=== PATIENT | female | born 1955 | race Caucasian/White ===

== ENCOUNTER 2018-09-17 09:03 | Emergency (ER) | payer BC ==
[2018-09-17] MEDS ORDERED: Promethazine 25 MG/ML SDV IM ONE (09:58)
--- NOTE | 2018-09-17 09:58 | EDM.PDOC ---
<Diogo Stringer - Last Filed: 09/17/18 11:09> ED HPI GENERAL MEDICAL PROBLEM - General Chief Complaint: Neck Problem Stated Complaint: NECK PAIN Time Seen by Provider: 09/17/18 09:45 Source of Information: Reports: Patient History Limitations: Reports: No Limitations - History of Present Illness INITIAL COMMENTS - FREE TEXT/NARRATIVE: 63 year old female presents with neck pain that began yesterday morning. The pain is 9/10 and described as being "sharp" which begins in the base of her neck up to the back of her head and also extends down to both of her shoulders on each side. The left seems to be more symptomatic than the right. She admits to being very limited range of motion of her neck due to pain. She states that pain is aggravated with movement. She has a history of C5-C6 fusion in 1998 and C6-C7 fusion in 2012. She has had 2 laminectomies in 2010 and 2011 of the lumbar spine. She denies any traumatic injury, radiation of pain beyond the shoulders, paresthesias, numbness, or weakness of the upper or lower extremities. Onset: Sudden Onset Date: 09/16/18 Duration: Constant Location: Reports: Neck, Other (nuchal ridge up to base of skull, cervical neck , and shoulders bilaterally) Quality: Reports: Sharp Severity: Severe Improves with: Reports: Other (sitting still). Denies: Movement (No improvment with meloxicam) Worsens with: Reports: Movement Context: Reports: Trauma. Denies: Activity, Exercise, Lifting, Sick Contact Associated Symptoms: Reports: No Other Symptoms. Denies: Confusion, Chest Pain , Fever/Chills, Headaches, Nausea/Vomiting, Shortness of Breath, Syncope, Weakness - Related Data Allergies Allergy/AdvReac Type Severity Reaction Status Date / Time codeine Allergy Hives Verified 09/17/18 09:12 Home Meds: Home Meds Cholecalciferol (Vitamin D3) [Vitamin D] 01/20/16 [History] DULoxetine [Cymbalta] 01/20/16 [History] Hydrocodone/Acetaminophen [Hydrocodon-Acetaminophen 5-325] 1 - 2 each PO Q6HR PRN #20 tablet 01/20/16 [Rx] Omeprazole 01/20/16 [History] busPIRone HCl [busPIRone] 01/20/16 [History] HYDROmorphone [Dilaudid] 2 mg PO Q6H #20 tab 09/17/18 [Rx] Meloxicam 15 mg PO DAILY #12 tablet 09/17/18 [Rx] predniSONE [Deltasone] 20 mg PO ASDIRECTED #18 tablet 09/17/18 [Rx] Past Medical History - Past Surgical History Other Musculoskeletal Surgeries/Procedures:: Cervical spine fusion C5-C6 1998, Cervical SPine fusion C6-C7 2012. Laminectomy 2010 and 2012 of lumbar spine ED ROS GENERAL - Review of Systems Review Of Systems: See Below Constitutional: Reports: No Symptoms, Night Sweats. Denies: Fever, Chills, Weakness, Fatigue, Weight Loss HEENT: Reports: No Symptoms. Denies: Ear Pain, Sinus Problem, Throat Pain, Throat Swelling, Vision Change Respiratory: Reports: No Symptoms. Denies: Shortness of Breath, Wheezing, Pleuritic Chest Pain, Cough, Sputum, Hemoptysis Cardiovascular: Reports: No Symptoms. Denies: Chest Pain, Dyspnea on Exertion, Edema, Lightheadedness, Orthopnea, Palpitations, Syncope Endocrine: Reports: No Symptoms GI/Abdominal: Reports: No Symptoms. Denies: Abdominal Pain, Diarrhea, Difficulty Swallowing, Nausea, Stool Incontinence, Vomiting : Reports: No Symptoms. Denies: Incontinence, Urinary Retention Musculoskeletal: Reports: Neck Pain (see hpi), Back Pain (Chronic lumbar spine) Skin: Reports: No Symptoms. Denies: Pallor, Dryness Neurological: Reports: No Symptoms. Denies: Headache, Numbness, Paresthesia, Syncope, Tingling, Trouble Speaking, Difficulty Walking, Weakness, Change in Speech, Gait Disturbance Psychiatric: Reports: No Symptoms Hematologic/Lymphatic: Reports: No Symptoms Immunologic: Reports: No Symptoms ED EXAM, UPPER BACK/NECK PAIN - Physical Exam Exam Limited By: Physical Impairment (Pt refuse to move neck due to pain.) General Appearance: Alert, WD/WN, No Apparent Distress Eye Exam: Bilateral Eye: EOMI, PERRL Ears Exam: Normal External Exam, Normal Canal, Hearing Grossly Normal, Normal TMs Nose Exam: Normal Inspection, Normal Mucousa, No Blood Throat/Mouth Exam: Normal Inspection, Normal Lips, Normal Teeth, Normal Gums, Normal Oropharynx, Normal Voice, No Airway Compromise Head Exam: Atraumatic, Normocephalic Neck Exam: Limited Range of Motion (due to pain), Painful Range of Motion (No passive or active range of motion due to pain), Stiff Neck, Tenderness (mild of the cervical spine), Other (TMJ full aROM.). No: Tender Lateral Cardiovascular/Respiratory: Regular Rate, Rhythm, No M/R/G, Normal Peripheral Pulses, No JVD, Normal Breath Sounds, No Respiratory Distress GI/Abdominal: Normal Bowel Sounds, Soft, Non-Tender, No Organomegaly, No Distention, No Abnormal Bruit, No Mass (Female) Exam: Deferred Rectal (Female) Exam: Deferred Back Exam: Decreased Range of Motion (limited due to pain of the lumber spine), Vertebral Tenderness. 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 Babinski negative bilaterally.). No: Aphasia, Facial Droop, Motor Weakness DTR: 3+: Bicep (R), Patella (R), Patella (L), Achilles (R), Achilles (L), 4+: Bicep (L) Psychiatric: Normal Affect, Normal Mood Skin Exam: Normal Color, Warm/Dry Lymphatic: No Adenopathy Course - Vital Signs Last Recorded V/S: Last Vital Signs Temp 36.5 C 09/17/18 09:10 Pulse 130 H 09/17/18 09:10 Resp 16 09/17/18 09:10 BP 170/119 H 09/17/18 09:10 Pulse Ox 94 L 09/17/18 09:10 - Orders/Labs/Meds Meds: Medications Discontinued Medications Generic Name Dose Route Start Last Admin Trade Name Freq PRN Reason Stop Dose Admin Hydromorphone HCl 2 mg 09/17/18 11:15 Dilaudid PO 09/17/18 11:16 ONETIME ONE Morphine Sulfate 10 mg 09/17/18 09:56 09/17/18 10:17 Morphine IM 09/17/18 09:57 10 mg ONETIME ONE Administration Morphine Sulfate Confirm 09/17/18 10:04 09/17/18 10:15 Morphine Administered 09/17/18 10:05 Not Given Dose 10 mg .ROUTE .STK-MED ONE Morphine Sulfate 10 mg 09/17/18 10:13 09/17/18 10:17 Morphine Sulfate IV 09/17/18 10:14 Not Given STAT STA Prednisone 30 mg 09/17/18 11:15 Prednisone PO 09/17/18 11:16 ONETIME ONE Promethazine HCl 12.5 mg 09/17/18 09:58 09/17/18 10:12 Phenergan IM 09/17/18 09:59 12.5 mg ONETIME ONE Administration Departure - Departure Disposition: Home, Self-Care 01 Clinical Impression: Degenerative arthritis of cervical spine Qualifiers: Spinal osteoarthritis complication: with radiculopathy Qualified Code(s): M47.22 - Other spondylosis with radiculopathy, cervical region - Discharge Information Prescriptions: HYDROmorphone [Dilaudid] 2 mg PO Q6H #20 tab Meloxicam 15 mg PO DAILY #12 tablet predniSONE [Deltasone] 20 mg PO ASDIRECTED #18 tablet Instructions: Arthritis, [id number] Referrals: Marlena Dawn MD [Primary Care Provider] - Forms: ED Department Discharge Additional Instructions: Evaluation the emergency room today in regards to acute flareup of severe neck pain. You're noted to have severe degenerative arthritis and degenerative disc disease throughout the cervical spine with 2 previous spinal fusions carried out the C5-C6 and C6-C7 levels. There is a good deal of arthritis at the C3 3- C4 level that is causing some nerve root irritation and entrapment particularly on the left side on CT scan. Suffered minor trauma to your head when you fell 2 days ago which may have set off a flareup of pain in the cervical spine. You're treated in the ED with pain management morphine 10 mg intramuscularly with Phenergan 12.5 mg to relieve pain. Suggest treatment at home to be Dilaudid 2 mg tablets to be used 1 every 4-6 hours as needed for pain relief. Suggest use of meloxicam 15 mg once daily to relieve pain and inflammation. This will take a couple of days to start to work well. Deltasone 20 mg twice daily with breakfast and supper for 6 days and then once in the morning only for another 6 days again to relieve inflammation which should reduce her pain. Follow-up with your personal care physician in 5-6 days time for review. Suggest using MiraLAX powder 17 g once daily well on the pain medication to prevent constipation. Continue with massage therapist as planned. 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 She is not on any medications for pain at this time) Neck Pain Score (Numeric/FACES): 9 Past Medical History - Past Health History Medical/Surgical History: Denies Medical/Surgical History Cardiovascular History: Reports: Other (See Below) Other Cardiovascular History: thoracic outlet surgery Musculoskeletal History: Reports: Osteoarthritis (Severe degenerative arthritis of the lumbar spine with previous fusion and advanced degenerative arthritis and degenerative disc disease throughout the cervical spine with two-level fusions.), Osteoporosis - Past Surgical History HEENT Surgical History: Reports: Other (See Below) Other HEENT Surgeries/Procedures: TMJ surgery GI Surgical History: Reports: Cholecystectomy Neurological Surgical History: Reports: Other (See Below) Other Neurological Surgeries/Procedures: neck fusion, back fusion Social & Family History - Tobacco Use Smoking Status *Q: Current Some Day Smoker Years of Tobacco use: 2 Packs/Tins Daily: 0.2 - Caffeine Use Caffeine Use: Reports: Coffee - Recreational Drug Use Recreational Drug Use: No - Living Situation & Occupation Living situation: Reports: Occupation: Disabled ED EXAM, UPPER BACK/NECK PAIN - Physical Exam Exam: See Below Course - Orders/Labs/Meds Meds: Medications Discontinued Medications Generic Name Dose Route Start Last Admin Trade Name Freq PRN Reason Stop Dose Admin Hydromorphone HCl 2 mg 09/17/18 11:15 Dilaudid PO 09/17/18 11:16 ONETIME ONE Morphine Sulfate 10 mg 09/17/18 09:56 09/17/18 10:17 Morphine IM 09/17/18 09:57 10 mg ONETIME ONE Administration Morphine Sulfate Confirm 09/17/18 10:04 09/17/18 10:15 Morphine Administered 09/17/18 10:05 Not Given Dose 10 mg .ROUTE .STK-MED ONE Morphine Sulfate 10 mg 09/17/18 10:13 09/17/18 10:17 Morphine Sulfate IV 09/17/18 10:14 Not Given STAT STA Prednisone 30 mg 09/17/18 11:15 Prednisone PO 09/17/18 11:16 ONETIME ONE Promethazine HCl 12.5 mg 09/17/18 09:58 09/17/18 10:12 Phenergan IM 09/17/18 09:59 12.5 mg ONETIME ONE Administration - Radiology Interpretation Free Text/Narrative:: 63-year-old female presents to the ED with an acute exacerbation of chronic cervical neck pain. Patient is known to suffer from chronic degenerative arthritis and degenerative disc disease of her cervical spine. She's had previous C5-C6 level fusion in 1998 and in had C6-C7 spinal fusion carried out in 2012. She had a slight fall at home 2 days ago where her head hit the wall after getting up from bed. It seems that since that time she has experienced a flareup of his pain in her neck with some radicular pain across the distribution of the superior left shoulder across the trapezius muscle in in towards the deltoid muscle. Pain does not radiate all the way down the arm. At present she is here primarily for pain management. Plan CT cervical spine will be carried out. She'll be given 10 mg of morphine IM with Phenergan 12.5 mg IM for pain and muscle spasm relief. Patient seen and examined with PA student Jewel Stringer. - Re-Assessments/Exams Free Text/Narrative Re-Assessment/Exam: 09/17/18 11:;00: CT cervical spine has been completed. It reveals anterior plate and screws between C5 and C6 obliteration of this disc space is seen with partial fusion fusion is noted at the C6-C7 level as well. Mild spondylosis listhesis is noted at C3-C4 compatible with degenerative apophyseal change. Posterior spurring is also noted at the C3-C4 level. Other degenerative apophyseal changes seen throughout the cervical spine. No fractures are identified. There is mild left-sided neural foraminal stenosis at C4-C5 and moderate bilateral neural foraminal stenosis noted at C3-C4. Mild bony O sent start stroke no stenosis is also noted at the C5-C6 level. Patient advised of the findings. She is quite drowsy from the effect of the morphine infected and had to wake her. She still complaining bitterly of diffuse cervical neck pain. Going to prescribe prednisone 30 mg by mouth now with a plan to place her on 20 mg twice a day for 6 days with breakfast and supper and then once in the morning only for another 6 days to relieve pain and inflammation. She is currently not on an anti-inflammatory and I will place her on meloxicam 15 mg once daily for the next 12 days to relieve pain and inflammation. Pain management will be with Dilaudid 2 mg tablets and she is allergic to codeine and found Percocet on helpful in the past. She will take 2 mg every 4-6 hours necessary for pain relief. 20 tablets provided. She will continue with massage therapy as she is finding this somewhat beneficial in relieving her pain as well. Sounds like she is likely headed for chronic pain management. She is to follow-up with her personal care physician in the next 5 days. Suggest referral to chronic pain management personnel. Departure - Departure Time of Disposition: 11:16 Condition: Fair - Discharge Information *PRESCRIPTION DRUG MONITORING PROGRAM REVIEWED*: No *COPY OF PRESCRIPTION DRUG MONITORING REPORT IN PATIENT AGATA: No
[2018-09-17] MEDS ORDERED: Morphine 10 MG/ML SDV ONE (10:04)
[2018-09-17] MEDS: Morphine 10 MG/ML Syringe IM ONE ×2 (10:12→10:17)
--- NOTE | 2018-09-17 10:48 | CT ---
CT cervical spine Technique: Multiple axial sections were obtained from above C1 inferiorly to the bottom of T2. Reconstructed sagittal and coronal images were obtained. Findings: Anterior plate and screws are noted between C5 and C6. Obliteration of this disc space is seen with partial fusion. Fusion is noted at the C6-C7 level. Mild spondylolisthesis is noted at C3-C4 compatible with degenerative apophyseal change. Posterior spurring is also noted at C3-C4. Other degenerative apophyseal change is seen throughout the cervical spine. No fracture is identified. Mild left-sided neural foraminal stenosis is noted at C4-C5. Moderate bilateral neural foraminal stenosis noted at C3-C4. Mild bony central canal stenosis is noted at C5-C6. Impression: 1. Degenerative change as described above. 2. Nothing acute is appreciated on CT study of the cervical spine. Diagnostic code #2
[2018-09-17] MEDS ORDERED: HYDROmorphone 2 MG Tab PO ONE (11:15)
[2018-09-17] MEDS ORDERED: predniSONE 20 MG Tab PO ONE (11:15)
[2018-09-17 12:37] VITALS: BP 165/112
== END 2018-09-17 12:35 | disposition home or self-care (01) ==
LOC: JD.ED 09:03
DX: M47.22 Other spondylosis with radiculopathy, cervical region (principal); F17.210 Nicotine dependence, cigarettes, uncomplicated; Z88.5 Allergy status to narcotic agent
CPT/HCPCS: 72125; 96372; 99283; A9270; J2270; J2550; 99284

== ENCOUNTER 2019-12-11 13:12 | Emergency (ER) | payer BC ==
[2019-12-11] MEDS ORDERED: fentaNYL 100 MCG/2 ML SDV ONE (13:34)
[2019-12-11] MEDS ORDERED: Midazolam 1 MG/ML 2 ML SDV ONE (13:35)
[2019-12-11] MEDS ORDERED: fentaNYL 100 MCG/2 ML SDV IVPUSH ONE ×3 (13:37→15:17)
--- NOTE | 2019-12-11 14:12 | CR ---
Left shoulder: 3 views left shoulder obtained. Displaced and angulated fracture is noted within the proximal humerus. Alignment at the glenohumeral joint is maintained. No additional abnormality is seen. Impression: 1. Displaced and angulated proximal left humeral fracture. Diagnostic code #3 This report was dictated in MDT
[2019-12-11 15:36] VITALS: BP 111/93
[2019-12-11] MEDS ORDERED: Acetaminophen/HYDROcodone 325-5 MG Tab PO ONE (16:12)
[2019-12-11] MEDS ORDERED: HYDROmorphone 2 MG Tab PO ONE (16:14)
--- NOTE | 2019-12-11 17:18 | EDM.PDOC ---
ED HPI GENERAL MEDICAL PROBLEM - General Chief Complaint: Trauma Stated Complaint: LT SHOULDER INJURY Time Seen by Provider: 12/11/19 13:15 - History of Present Illness INITIAL COMMENTS - FREE TEXT/NARRATIVE: 64-year-old female presents the emergency room after falling off a barstool in her kitchen. This occurred shortly before arrival. The patient has significant discomfort with this. Patient denies any other injuries associated with this unfortunate event. The patient had brief mild tingling in her fingers but this did resolve by the time she got to the emergency room. Patient denies any cool sensation or abnormal sensation in her digits at this time. Patient denies hitting her head. Left Shoulder Pain Score (Numeric/FACES): 10 - Related Data Allergies Allergy/AdvReac Type Severity Reaction Status Date / Time codeine Allergy Hives Verified 09/17/18 09:12 Home Meds: Home Meds Hydrocodone/Acetaminophen [Hydrocodone-Acetamin 5-325 mg] 1 - 2 each PO Q6HR PRN #20 tablet 01/20/16 [Rx] Omeprazole 20 mg PO DAILY 01/20/16 [History] busPIRone HCl [busPIRone] 30 mg PO DAILY 01/20/16 [History] HYDROmorphone [Dilaudid] 1 - 2 mg PO Q6H PRN #20 tab 12/11/19 [Rx] Past Medical History - Past Health History Medical/Surgical History: Denies Medical/Surgical History Cardiovascular History: Reports: Other (See Below) Other Cardiovascular History: thoracic outlet surgery Musculoskeletal History: Reports: Osteoarthritis, Osteoporosis - Past Surgical History HEENT Surgical History: Reports: Other (See Below) Other HEENT Surgeries/Procedures: TMJ surgery GI Surgical History: Reports: Cholecystectomy Neurological Surgical History: Reports: Other (See Below) Other Neurological Surgeries/Procedures: neck fusion, back fusion Social & Family History - Tobacco Use Smoking Status *Q: Never Smoker Second Hand Smoke Exposure: No - Caffeine Use Caffeine Use: Reports: None - Recreational Drug Use Recreational Drug Use: No - Living Situation & Occupation Living situation: Reports: Occupation: Disabled Review of Systems - Review of Systems Review Of Systems: See Below Constitutional: Reports: No Symptoms Respiratory: Reports: No Symptoms Cardiovascular: Reports: No Symptoms GI/Abdominal: Reports: No Symptoms Genitourinary: Reports: No Symptoms Musculoskeletal: Reports: No Symptoms Skin: Reports: No Symptoms Neurological: Reports: No Symptoms Psychiatric: Reports: No Symptoms ED EXAM, GENERAL - Physical Exam Exam: See Below Exam Limited By: No Limitations General Appearance: Alert, Moderate Distress (From the pain associated with this injury) Head: Atraumatic, Normocephalic, Other (With palpation of the scalp no evidence of trauma) Neck: Normal Inspection, Supple, Non-Tender. No: Lymphadenopathy (L), Lymphadenopathy (R), Tender Lateral, Tender Midline Respiratory/Chest: No Respiratory Distress, Lungs Clear, Normal Breath Sounds Cardiovascular: Normal Peripheral Pulses, Regular Rate, Rhythm, No Edema GI/Abdominal: Normal Bowel Sounds, Soft, Non-Tender Back Exam: Normal Inspection. No: CVA Tenderness (L), CVA Tenderness (R), Vertebral Tenderness Extremities: Other (Examination of her left shoulder is concerning she has a bulge on the anterior surface almost like an anterior dislocation however she does not have a sulcus sign. Neurovascular status of the hand is entirely within normal limits the patient can move the elbow however muscle movement extending proximally up the humerus causes worsening pain the patient has some ecchymosis noted over the anterior shoulder next to the bulge that is anterior) Course - Vital Signs Last Recorded V/S: Last Vital Signs Temp 36.2 C 12/11/19 13:40 Pulse 78 12/11/19 17:15 Resp 16 12/11/19 17:15 BP 111/93 H 12/11/19 15:35 Pulse Ox 97 12/11/19 17:15 - Orders/Labs/Meds Orders: Active Orders 24 hr Category Date Time Status DME for Discharge [COMM] Stat Oth 12/11/19 15:10 Ordered Meds: Medications Discontinued Medications Generic Name Dose Route Start Last Admin Trade Name Emile PRN Reason Stop Dose Admin Hydrocodone Bitart/Acetaminophen 2 tab 12/11/19 16:12 12/11/19 17:28 [place] 325-5 Mg PO 12/11/19 16:13 Not Given ONETIME ONE Fentanyl 50 mcg 12/11/19 13:37 12/11/19 13:49 Sublimaze IVPUSH 12/11/19 13:38 50 mcg ONETIME ONE Administration Fentanyl Confirm 12/11/19 13:34 12/11/19 13:49 Sublimaze Administered 12/11/19 13:35 Not Given Dose 100 mcg .ROUTE .STK-MED ONE Fentanyl 50 mcg 12/11/19 14:47 12/11/19 14:51 Sublimaze IVPUSH 12/11/19 14:48 50 mcg ONETIME ONE Administration Fentanyl 50 mcg 12/11/19 15:17 12/11/19 15:26 Sublimaze IVPUSH 12/11/19 15:18 50 mcg ONETIME ONE Administration Hydromorphone HCl 2 mg 12/11/19 16:14 12/11/19 16:54 Dilaudid PO 12/11/19 16:15 2 mg Q4H ONE Administration Midazolam HCl Confirm 12/11/19 13:35 12/11/19 14:05 Versed 1 Mg/Ml Administered 12/11/19 13:36 Not Given Dose 2 mg .ROUTE .STK-MED ONE - Re-Assessments/Exams Free Text/Narrative Re-Assessment/Exam: 12/11/19 19:49 X-ray of the shoulder shows angulated and displaced fracture of the proximal humerus. I discussed this with Dr. Bhatt who would like the patient placed in a sling gravity might help get better alignment of this. So the sling was placed loosely. Over time the patient felt much better with this. The patient has had problems with codeine hydrocodone and Percocet in the past she does better on oral Dilaudid. Departure - Departure Time of Disposition: 17:14 Disposition: Home, Self-Care 01 Clinical Impression: Closed fracture of left proximal humerus - Discharge Information Prescriptions: HYDROmorphone [Dilaudid] 1 - 2 mg PO Q6H PRN #20 tab PRN Reason: Pain Instructions: Cast or Splint Care, Adult, [id number] Referrals: Marlena Dawn MD [Primary Care Provider] - Pipe Bhatt MD [Physician] - Forms: ED Department Discharge Additional Instructions: Turn to the emergency room with any questions problems or worsening symptoms. Follow-up with Dr. Bhatt on Saturday call Saturday for an appointment Use the sling at all times Use the Dilaudid as needed for pain 1/2 to 1 tablet every 6 hours. Sepsis Event Note - Evaluation Sepsis Screening Result: No Definite Risk - Focused Exam Vital Signs: Vital Signs Temp Pulse Resp BP Pulse Ox 12/11/19 17:15 78 16 97 12/11/19 15:35 90 13 111/93 H 100 12/11/19 13:40 36.2 C 86 18 146/96 H 96 12/11/19 13:33 36.2 C 22 H Date Exam was Performed: 12/11/19 Time Exam was Performed: 19:41 - My Orders Last 24 Hours: My Active Orders 12/11/19 15:10 DME for Discharge [COMM] Stat - Assessment/Plan Last 24 Hours: My Active Orders 12/11/19 15:10 DME for Discharge [COMM] Stat
[2019-12-11 17:31] VITALS: PULSE 78
== END 2019-12-11 17:25 | disposition home or self-care (01) ==
LOC: JD.ED 13:12
DX: S42.202A Unspecified fracture of upper end of left humerus, initial encounter for closed fracture (principal); Z88.5 Allergy status to narcotic agent; Z79.899 Other long term (current) drug therapy; W08.XXXA Fall from other furniture, initial encounter
CPT/HCPCS: 73030; 96374; 96376; 99283; A9270; J3010

== ENCOUNTER 2019-12-17 06:00 | Day surgery (SDC) | payer BC ==
[~2019-12-17 06:00] MED LIST: Lactated Ringers 1,000 ML IV SCH; Lidocaine 1%/Sod Bicarbonate in NS 8.4% 1 ML Syringe IDERM PRN; Sodium Chloride 0.9% 10 ML Syringe FLUSH PRN
[2019-12-17] MEDS ORDERED: cloNIDine 1,000 MCG/10 ML SDV ONE (06:16)
[2019-12-17] MEDS ORDERED: Dexamethasone 4 MG/ML 5 ML MDV ONE (06:16)
[2019-12-17] MEDS ORDERED: fentaNYL 100 MCG/2 ML SDV ONE (06:17)
[2019-12-17] MEDS ORDERED: Midazolam 1 MG/ML 2 ML SDV ONE (06:17)
[2019-12-17] MEDS ORDERED: Lidocaine 1% 4 ML ONE (06:19)
[2019-12-17] MEDS ORDERED: Ropivacaine 0.5% 5 MG/ML 30 ML SDV ONE (06:23)
[2019-12-17] MEDS ORDERED: Scopolamine 1.5 MG Transdermal Patch TOP ONE (06:24)
--- NOTE | 2019-12-17 06:42 | PCM.PREANE ---
Preanesthetic Assessment - Procedure Proposed Procedure: Lt proximal humerus ORIF - Anesthesia/Transfusion/Family Hx Anesthesia History: Prior Anesthesia Without Reaction Transfusion History: No Prior Transfusion(s) - Review of Systems General: Weakness Pulmonary: No Symptoms Cardiovascular: No Symptoms Gastrointestinal: Nausea Neurological: No Symptoms Other: Reports: None - Physical Assessment NPO Status Date: 12/16/19 NPO Status Time: 23:55 Vital Signs: Last Vital Signs Temp 97.3 F 12/17/19 06:00 Pulse 85 12/17/19 06:00 Resp 16 12/17/19 06:00 BP 96/61 12/17/19 06:00 Pulse Ox 92 L 12/17/19 06:00 Height: 1.7 m Weight: 76.657 kg ASA Class: 2 Mental Status: Alert & Oriented x3 Airway Class: Mallampati = 2 Dentition: Reports: Normal Dentition Thyro-Mental Finger Breadths: 3 Mouth Opening Finger Breadths: 3 ROM/Head Extension: Limited/Partial Lungs: Clear to Auscultation, Normal Respiratory Effort Cardiovascular: Regular Rate, Regular Rhythm - Lab Values: Laboratory Last Values SARS Virus RNA (PCR) Negative (NEGATIVE) 12/15/19 11:39 MRSA (PCR) Negative 12/15/19 11:28 - Allergies Allergies/Adverse Reactions: Allergies Allergy/AdvReac Type Severity Reaction Status Date / Time codeine Allergy Hives Verified 12/16/19 16:08 - Acknowledgements Anesthesia Type Planned: General Anesthesia, Regional Block Pt an Appropriate Candidate for the Planned Anesthesia: Yes Alternatives and Risks of Anesthesia Discussed w Pt/Guardian: Yes Pt/Guardian Understands and Agrees with Anesthesia Plan: Yes PreAnesthesia Questionnaire - Past Health History Medical/Surgical History: Denies Medical/Surgical History Cardiovascular History: Reports: Hypertension, Other (See Below) Other Cardiovascular History: thoracic outlet surgery Genitourinary History: Reports: None Musculoskeletal History: Reports: Osteoarthritis, Osteoporosis Neurological History: Reports: Other (See Below) Other Neuro History: THORACIC OUTLET SYNDROME, NECK FUSION, BACK FUSION Hematologic History: Reports: None Immunologic History: Reports: None Oncologic (Cancer) History: Reports: None Dermatologic History: Reports: None - Infectious Disease History Infectious Disease History: Reports: None - Past Surgical History Head Surgeries/Procedures: Reports: None HEENT Surgical History: Reports: Cataract Surgery, Other (See Below) Other HEENT Surgeries/Procedures: TMJ surgery Cardiovascular Surgical History: Reports: None Respiratory Surgical History: Reports: None GI Surgical History: Reports: Cholecystectomy, Colonoscopy, EGD Female Surgical History: Reports: Section, Tubal Ligation Male Surgical History: Reports: None Endocrine Surgical History: Reports: None Neurological Surgical History: Reports: C-Spine, Laminectomy, Other (See Below) Other Neurological Surgeries/Procedures: neck fusion, back fusion Musculoskeletal Surgical History: Reports: None Other Musculoskeletal Surgeries/Procedures:: Cervical spine fusion C5-C6 1998, Cervical SPine fusion C6-C7 2012. Laminectomy 2010 and 2011 of lumbar spine Oncologic Surgical History: Reports: None Dermatological Surgical History: Reports: None - SUBSTANCE USE Smoking Status *Q: Current Every Day Smoker Tobacco Use Within Last Twelve Months: Vaping Recreational Drug Use History: No - HOME MEDS Home Medications: Home Meds RX: Omeprazole 20 mg PO DAILY 01/20/16 [History] RX: Amitriptyline [Elavil] 25 mg PO BEDTIME 12/16/19 [History] RX: Aspirin [Halfprin] 81 mg PO DAILY 12/16/19 [History] RX: Cholecalciferol (Vitamin D3) [Vitamin D3] 5,000 unit PO DAILY 12/16/19 [ History] RX: DULoxetine [Cymbalta] 30 mg PO DAILY 12/16/19 [History] RX: Lisinopril/Hydrochlorothiazide [Lisinopril-Hctz 20-25 mg Tab] 1 tab PO DAILY 12/16/19 [History] RX: traZODone HCl [Trazodone HCl] 100 mg PO DAILY 12/16/19 [History] RX: HYDROmorphone [Dilaudid] 0.5 - 1 mg PO Q6H PRN #20 tab 12/17/19 [Rx] RX: LORazepam [Lorazepam] 1 mg PO BEDTIME #0 12/17/19 [Rx] - CURRENT (IN HOUSE) MEDS Current Meds: Current Medications Lactated Ringer's (Ringers, Lactated) 1,000 mls @ 125 mls/hr IV ASDIRECTED JOSE ALFREDO Stop: 12/17/19 23:00 Lidocaine/Sodium Bicarbonate (Buffered Lidocaine 1% In Ns 8.4%) 0.25 ml IDERM ONETIME PRN PRN Reason: Prior to IV Start Stop: 12/17/19 18:00 Miscellaneous Information (Remove Patch) 1 ea TRDERM Q3D JOSE ALFREDO Sodium Chloride (Saline Flush) 10 ml FLUSH ASDIRECTED PRN PRN Reason: Keep Vein Open Stop: 12/17/19 18:00 Discontinued Medications Clonidine HCl (Duraclon) Confirm Administered Dose 1,000 mcg .ROUTE .STK-MED ONE Stop: 12/17/19 06:17 Dexamethasone (Dexamethasone) Confirm Administered Dose 20 mg .ROUTE .STK-MED ONE Stop: 12/17/19 06:17 Fentanyl (Sublimaze) Confirm Administered Dose 100 mcg .ROUTE .STK-MED ONE Stop: 12/17/19 06:18 Lidocaine HCl (Xylocaine-Mpf 1%) Confirm Administered Dose 4 mls @ as directed .ROUTE .STK-MED ONE Stop: 12/17/19 06:20 Midazolam HCl (Versed 1 Mg/Ml) Confirm Administered Dose 4 mg .ROUTE .STK-MED ONE Stop: 12/17/19 06:18 Ropivacaine (Naropin 0.5%) Confirm Administered Dose 30 ml .ROUTE .STK-MED ONE Stop: 12/17/19 06:24 Scopolamine (Transderm-Scop) 1.5 mg TOP ONETIME ONE Stop: 12/17/19 06:25
[2019-12-17] MEDS ORDERED: Propofol 200 MG/20 ML SDV ONE (07:12)
[2019-12-17] MEDS ORDERED: Succinylcholine/Sod PF 100 MG/5 ML SYRINGE IV ONE (07:13)
[2019-12-17] MEDS ORDERED: ceFAZolin 1 GM Vial ONE (07:27)
[2019-12-17] MEDS ORDERED: Bupivacaine 0.5% 10 ML SDV ONE (07:30)
[2019-12-17] MEDS ORDERED: Phenylephrine 1% 10 MG/ML SDV ONE (08:08)
[2019-12-17] MEDS ORDERED: HYDROmorphone 0.5 MG/0.5 ML Syringe IVPUSH PRN (08:29)
[2019-12-17] MEDS ORDERED: fentaNYL 100 MCG/2 ML SDV IVPUSH PRN (08:29)
--- NOTE | 2019-12-17 08:40 | PCM.PRNOTE ---
- Free Text/Narrative Note: Postoperative regional pain control requested by surgeon. Pre-op Dx: Left proximal humerus fracture Surgical procedure: Left humerus ORIF Procedure: Lt Interscalene block with U/S guidance Requesting physician: Dr. Pipe Mendiola Risks and benefits discussed with the patient preoperatively including infection , bleeding, incomplete or failed block, possible nerve damage, local anesthetic toxicity. Chart reviewed, VS stable. Permit signed. Patient in preoperative room, stable , alert and awake. Time out performed at 06 :57. Oxygen 3L via NC. Left side of the neck was prepped with Chloraprep x 1 and allowed to dry. Midazolam IV 2 mg given. Under aseptic technique, the brachial plexus was identified under ultrasound prior to needle insertion. Local infiltration with 2mls of 1% Lidocaine. 2" Stimuplex needle #22 G was inserted under US guidance. Under direct visualization of needle tip the injection of 0.5% Ropivacaine with 1:200k epinephrine, with additives of 100 mcg Clonidine and 4 mg Dexamethasone, total of 30 mls in divided doses, maintaining negative aspiration was completed without problems. No local anesthetic toxicity was noted. Patient is awake, stable and tolerated the procedure well. Please see the attached U/S images Time: 06:57 - 07:02 Supplementary left intercostobrachial nerve block performed in OR at 07:37 after induction/intubation. Lt armpit was prepped and using sterile technique, 8 mls of 0.5% Bupivacaine were injected in a ring fashion subcutaneously over the proximal arm inner surface, maintaining negative aspiration.
[2019-12-17] MEDS ORDERED: Ondansetron 4 MG/2 ML SDV ONE (08:49)
[2019-12-17] MEDS ORDERED: Lactated Ringers 1,000 ML ONE (08:51)
--- NOTE | 2019-12-17 09:12 | CR ---
Left shoulder: 10 fluoroscopic spot views were obtained of the left shoulder. Comparison: Prior left shoulder radiographic study of 12/11/19. Findings: Study shows placement of plate and screws across previous fracture. Fluoroscopy time is given as 53.3 seconds. Impression: 1. Procedural study as noted above. Diagnostic code #2 This report was dictated in MDT
--- NOTE | 2019-12-17 09:44 | PCM.POSTAN ---
POST ANESTHESIA ASSESSMENT - MENTAL STATUS Mental Status: Somnolent - VITAL SIGNS Vital Signs: 1st set of VSs: 104/44, HR 79, RR 8, SpO2 100% on 4L NC, T 98F Last Vital Signs Temp 98.1 F 12/17/19 09:30 Pulse 76 12/17/19 09:30 Resp 15 12/17/19 09:30 BP 100/69 12/17/19 09:30 Pulse Ox 99 12/17/19 09:30 - RESPIRATORY Respiratory Status: Respiratory Rate WNL, Airway Patent, O2 Saturation Stable, Supplemental Oxygen - CARDIOVASCULAR CV Status: Pulse Rate WNL, Blood Pressure Stable - GASTROINTESTINAL GI Status: No Symptoms - PAIN Pain Score: 0 (post ISB) - POST OP HYDRATION Hydration Status: Adequate & Stable
[2019-12-17 11:11] VITALS: PULSE 71
[2019-12-17 12:14] VITALS: BP 114/72
--- NOTE | 2019-12-17 12:33 | PCM48HPAN ---
Post Anesthesia Note - EVALUATION WITHIN 48HRS OF ANESTHETIC Vital Signs in Normal Range: Yes Patient Participated in Evaluation: Yes Respiratory Function Stable: Yes Airway Patent: Yes Cardiovascular Function Stable: Yes Hydration Status Stable: Yes Pain Control Satisfactory: Yes Nausea and Vomiting Control Satisfactory: Yes Mental Status Recovered: Yes Vital Signs: Last Vital Signs Temp 98.2 F 12/17/19 10:37 Pulse 71 12/17/19 11:14 Resp 18 12/17/19 11:14 BP 114/72 12/17/19 11:14 Pulse Ox 94 L 12/17/19 11:14 - COMMENTS/OBSERVATIONS Free Text/Narrative:: Patient is being discharged home. Instructions given.
--- NOTE | 2019-12-22 07:06 | PCM.OPNOTE ---
- General Post-Op/Procedure Note Date of Surgery/Procedure: 12/17/19 Operative Procedure(s): open reduction internal fixation of left proximal humerus fracture Pre Op Diagnosis: left proximal humerus fracture Post-Op Diagnosis: Same Anesthesia Technique: General ET Tube, Regional Block Primary Surgeon: Pipe Bhatt Anesthesia Provider: Adam Rodriguez Supervisor Sunglasses: Maia Plata EBL in mLs: 50 Complications: None Condition: Good
--- NOTE | 2019-12-22 08:01 | OR ---
DATE OF OPERATION: 12/17/2019 SURGEON: Pipe Bhatt MD OPERATION PERFORMED: Open reduction and internal fixation of left proximal humerus fracture. PREOPERATIVE DIAGNOSIS: Left proximal humerus fracture without tuberosity involvement. POSTOPERATIVE DIAGNOSIS: Left proximal humerus fracture without tuberosity involvement. ANESTHESIA: General endotracheal intubation with regional interscalene block. ANESTHESIA PROVIDER: Breanna Jasso. CORRECTIONS NURSE: Maia Plata PA-C. ESTIMATED BLOOD LOSS: 50 mL. COMPLICATIONS: None. CONDITION: Stable. DESCRIPTION OF PROCEDURE: The patient was identified in the preop holding area. Proper site was marked and identified by the surgeon. The patient was taken back to the operating theater where after anesthesia, the patient's left upper extremity was sterilely prepped and draped in the usual sterile fashion. OR time-out was performed. The patient received 2 g IV Ancef. The patient was placed in the reverse Trendelenburg position. Standard deltopectoral incision was made. This was taken down to the cephalic vein. The cephalic vein was identified and was retracted laterally. At this time, we were able to see the proximal humerus fracture with the shaft fragment significantly displaced anteriorly. Curette and rongeur were used to remove any fracture hematoma and the interposed soft tissue. At this time, a closed reduction maneuver was done. The patient was noted to have some metaphyseal comminution. A [place] 4-hole proximal humeral locking plate was then placed under direct C-arm fluoroscopy. It was found to be in adequate position. At this time, a nonlocking screw was placed in the shaft to transfix it and hold it into place. At this time, the proximal humeral fragment was then adjusted to make sure that it was not in varus. A K-wire was used to hold it and then I began to place locking screws proximally. Once I had placed 3 locking screws proximally, they were found to be in good position on both AP and lateral views. Utilizing C-arm fluoroscopy, I placed another shaft screw to hold it in place. C-arm fluoroscopy was then utilized to look at the fracture and hole. It was not found to be in varus. It did have some metaphyseal comminution, but otherwise was in good positioning. The plate was not too proximal near the greater tuberosity. Another 3 locking screws were placed proximally and then another 2 cortical screws were placed in the shaft. It was found to have anatomic reduction on C-arm fluoroscopy. Adequate saline was irrigated through the wound, 2-0 Vicryl was used subcutaneously, and Prineo was used for the skin. The patient tolerated the procedure well and sent to PACU in stable condition. MMODAL /[id number]
== END 2019-12-17 11:29 | disposition home or self-care (01) ==
LOC: JD.SDS 06:00
PROVIDERS: ATTEND Orthopaedic Surgery
DX: S42.202A Unspecified fracture of upper end of left humerus, initial encounter for closed fracture (principal); I10 Essential (primary) hypertension; F17.290 Nicotine dependence, other tobacco product, uncomplicated; Z11.59 Encounter for screening for other viral diseases; Z88.5 Allergy status to narcotic agent
CPT/HCPCS: 23615; 76000; 87635; 87641; A9270; C1713; J0330; J0690; J0735; J1100; J2001; J2250; J2370; J2405; J2704; J2795; J3010; J3490; J7120; 01630; 64415; U0002

== ENCOUNTER 2019-12-30 13:11 | Emergency (ER) | payer BC ==
[2019-12-30] MEDS ORDERED: Famotidine 20 MG/2 ML SDV IVPUSH ONE (13:42)
[2019-12-30] MEDS ORDERED: Sodium Chloride 0.9% 10 ML Syringe FLUSH PRN (13:42)
[2019-12-30] MEDS ORDERED: diphenhydrAMINE 50 MG/ML SDV IVPUSH ONE ×2 (13:42→16:27)
[2019-12-30] MEDS ORDERED: Sodium Chloride 0.9% 1,000 ML IV ONE (13:42)
[2019-12-30] MEDS ORDERED: methylPREDNISolone Sodium Succinate 125 MG/2 ML SDV IVPUSH ONE (13:42)
--- NOTE | 2019-12-30 13:52 | EDM.PDOC ---
ED HPI GENERAL MEDICAL PROBLEM - General Chief Complaint: Skin Complaint Stated Complaint: HIVES Time Seen by Provider: 12/30/19 13:26 Source of Information: Reports: Patient, RN Notes Reviewed History Limitations: Reports: No Limitations - History of Present Illness INITIAL COMMENTS - FREE TEXT/NARRATIVE: Patient is a 64-year-old female who presents to the ED for evaluation of her hives. Patient states that she had humerus repair done by Dr. Bhatt 2 weeks ago. She states that she saw Jayashree Plata, his PA-C yesterday, and everything was going well. She states that after she saw the PA she noticed a rash on her right arm, and into her groin, and back area. Patient states that the pain and itching has been extremely worse today, she states that she did not change any medications per se, she was started again on Dilaudid, but states that she had taken Dilaudid in the past he does not think this is what could be causing issues. Patient denies any sort of perfume/detergents/lotion changes. She states 1 of the only thing that is different, has been a switch to a generic laxative, that she got at [facility]. Patient denies any difficulty breathing, shortness of breath/cough/fever/chills. She does state that she is having some numbness to her third, fourth and fifth digits on her left hand, but did not talk with Jayashree about this yesterday either. There is some duskiness of the left hand appreciated, but again she said that Jayashree was not concerned with this, yesterday. Left Arm Pain Score (Numeric/FACES): 10 - Related Data Allergies Allergy/AdvReac Type Severity Reaction Status Date / Time codeine Allergy Hives Verified 12/30/19 13:32 Home Meds: Home Meds Omeprazole 20 mg PO DAILY 01/20/16 [History] Amitriptyline [Elavil] 25 mg PO BEDTIME 12/16/19 [History] Aspirin [Halfprin] 81 mg PO DAILY 12/16/19 [History] Cholecalciferol (Vitamin D3) [Vitamin D3] 5,000 unit PO DAILY 12/16/19 [History] DULoxetine [Cymbalta] 30 mg PO DAILY 12/16/19 [History] Lisinopril/Hydrochlorothiazide [Lisinopril-Hctz 20-25 mg Tab] 1 tab PO DAILY 12/16/19 [History] traZODone HCl [Trazodone HCl] 100 mg PO DAILY 12/16/19 [History] HYDROmorphone [Dilaudid] 0.5 - 1 mg PO Q6H PRN #20 tab 12/17/19 [Rx] LORazepam [Lorazepam] 1 mg PO BEDTIME #0 12/17/19 [Rx] predniSONE 20 mg PO ASDIRECTED #15 tab 12/30/19 [Rx] Past Medical History Cardiovascular History: Reports: Hypertension, Other (See Below) Other Cardiovascular History: thoracic outlet surgery Musculoskeletal History: Reports: Osteoarthritis, Osteoporosis Neurological History: Reports: Other (See Below) Other Neuro History: THORACIC OUTLET SYNDROME, NECK FUSION, BACK FUSION - Past Surgical History HEENT Surgical History: Reports: Cataract Surgery, Other (See Below) Other HEENT Surgeries/Procedures: TMJ surgery GI Surgical History: Reports: Cholecystectomy, Colonoscopy, EGD Female Surgical History: Reports: Section, Tubal Ligation Neurological Surgical History: Reports: C-Spine, Laminectomy, Other (See Below) Other Neurological Surgeries/Procedures: neck fusion, back fusion Musculoskeletal Surgical History: Reports: Shoulder Surgery Other Musculoskeletal Surgeries/Procedures:: Cervical spine fusion C5-C6 1998, Cervical SPine fusion C6-C7 2012. Laminectomy 2010 and 2011 of lumbar spine, L shoulder surgery 12/14/2019 Social & Family History - Tobacco Use Smoking Status *Q: Current Every Day Smoker Years of Tobacco use: 10 Packs/Tins Daily: 1 - Caffeine Use Caffeine Use: Reports: None - Recreational Drug Use Recreational Drug Use: Yes Recreational Drug Type: Reports: Marijuana/Hashish - Living Situation & Occupation Living situation: Reports: Occupation: Disabled ED ROS GENERAL - Review of Systems Review Of Systems: See Below Constitutional: Denies: Fever, Chills Respiratory: Denies: Shortness of Breath, Cough Cardiovascular: Denies: Chest Pain GI/Abdominal: Denies: Abdominal Pain, Constipation, Diarrhea, Nausea, Vomiting Skin: Reports: Rash (hive like lesions in different places on body surface) ED EXAM, SKIN/RASH Exam: See Below Exam Limited By: No Limitations General Appearance: Alert, WD/WN, No Apparent Distress Eye Exam: Bilateral Eye: EOMI Throat/Mouth: Normal Inspection, Normal Lips, Normal Teeth, Normal Gums, Normal Oropharynx, Normal Voice, No Airway Compromise Head: Atraumatic, Normocephalic Neck: Normal Inspection Respiratory/Chest: No Respiratory Distress, Lungs Clear, Normal Breath Sounds, No Accessory Muscle Use, Chest Non-Tender Cardiovascular: Normal Peripheral Pulses, Regular Rate, Rhythm, No Murmur GI/Abdominal: Normal Bowel Sounds, Soft, Non-Tender, No Distention, No Mass Extremities: Normal Range of Motion, Normal Capillary Refill, Other (Right arm, swelling noted to the dorsum of the hand, with associated redness, and hive-like lesions spreading up the arm. Left arm: Mild duskiness appreciated to the entire arm/hand, I do believe this is due to postsurgical changes and blood settling. Unsure as to what is causing the numbness and tingling in her fingers.) Neurological: Alert, Oriented, Normal Cognition, No Motor/Sensory Deficits Psychiatric: Normal Affect, Normal Mood Skin: Warm, Dry, Intact, Normal Color, Rash (Multiple hive-like lesions in multiple locations on her body) Location, Skin: Abdomen (right flank area), Back, Upper Extremity, Right, Groin Characteristics: Macular, Erythematous Associated features: Warmth, Inflammation (itchy) Course - Vital Signs Last Recorded V/S: Last Vital Signs Temp 97.2 F 12/30/19 13:26 Pulse 83 12/30/19 16:40 Resp 16 12/30/19 16:40 BP 97/70 12/30/19 16:40 Pulse Ox 97 12/30/19 16:40 - Orders/Labs/Meds Orders: Active Orders 24 hr Category Date Time Status Peripheral IV Care [RC] . DIRECTED Care 12/30/19 13:42 Active Peripheral IV Insertion Adult [OM.PC] Stat Oth 12/30/19 13:42 Ordered Meds: Medications Discontinued Medications Generic Name Dose Route Start Last Admin Trade Name Freq PRN Reason Stop Dose Admin Diphenhydramine HCl 50 mg 12/30/19 13:42 12/30/19 14:07 Benadryl IVPUSH 12/30/19 13:43 50 mg ONETIME ONE Administration Diphenhydramine HCl 25 mg 12/30/19 16:27 12/30/19 16:56 Benadryl IVPUSH 12/30/19 16:28 Not Given ONETIME ONE Famotidine 20 mg 12/30/19 13:42 12/30/19 14:07 Pepcid IVPUSH 12/30/19 13:43 20 mg ONETIME ONE Administration Sodium Chloride 1,000 mls @ 500 mls/hr 12/30/19 13:42 12/30/19 14:07 Normal Saline IV 12/30/19 15:41 500 mls/hr ONETIME ONE Administration Methylprednisolone Sodium Succinate 125 mg 12/30/19 13:42 12/30/19 14:08 Solu-Medrol IVPUSH 12/30/19 13:43 125 mg ONETIME ONE Administration Sodium Chloride 10 ml 12/30/19 13:42 12/30/19 14:08 Saline Flush FLUSH 10 ml ASDIRECTED PRN Administration Keep Vein Open - Re-Assessments/Exams Free Text/Narrative Re-Assessment/Exam: 12/30/19 13:54 Patient presents to the ED for evaluation of her hive-like lesions. Unsure as to what exactly is causing these lesions. Likely could be additive in the generic laxative that she is taking. She notes no other change in her diet and or daily routine, states that she is taken Dilaudid before without this reaction. I will have IV be placed, give her some IV medications for an allergic reaction of sorts. 12/30/19 16:18 Patient states that she is still quite itchy, and has not had much relief from her hives. However I do believe this is not can to be an instant fix for her, I will send her home with prednisone, try to keep the areas cool with cool compresses and/or ambient air. I did talk with Maia Plata regarding the patient's reported numbness, and the color of her left hand, Maia stated that this is not changed from yesterday, and suggest that the numbness is due to ulnar nerve stretching, and did state that the patient can wear her shoulder immobilizer, with her wrist out of the immobilizer to help relieve some of this numbness. Departure - Departure Time of Disposition: 16:20 Disposition: Home, Self-Care 01 Condition: Good Clinical Impression: Hives of unknown origin Allergic reaction Qualifiers: Encounter type: initial encounter Qualified Code(s): T78.40XA - Allergy, unspecified, initial encounter - Discharge Information *PRESCRIPTION DRUG MONITORING PROGRAM REVIEWED*: No *COPY OF PRESCRIPTION DRUG MONITORING REPORT IN PATIENT AGATA: No Prescriptions: predniSONE 20 mg PO ASDIRECTED #15 tab Instructions: Allergies, Adult, [id number] Referrals: Pipe Bhatt MD [Primary Care Provider] - Forms: ED Department Discharge Additional Instructions: You were evaluated in the ER today regarding your allergic reaction and hives. You were given IV medications to help counteract some of these issues. You reported little relief, but this will not get better in a short amount of time, this is something that we will need to take a little bit of time to get better, you should have a little bit more relief in the next day or 2. You have been given a prescription for prednisone, please take as directed for further symptomatic relief. Please try to keep the areas cool, with cool compresses and/or cool baths. You may want to try moist ambient air over the areas to see if this helps as well. Again, this is not going to get much better right away, and will take a little bit of time to get better. I recommend you cease use of the generic stool softener that you were using as well to see if this helps alleviate some symptoms. Recommend you take 25 of Benadryl every 4-6 hours; Pepcid 20mg BID for further symptomatic relief. Please return to the ER at anytime if your symptoms change or worsen. Sepsis Event Note (ED) - Evaluation Sepsis Screening Result: No Definite Risk - Focused Exam Vital Signs: Vital Signs Temp Pulse Resp BP Pulse Ox 12/30/19 16:40 83 16 97/70 97 12/30/19 13:26 97.2 F 93 16 93/65 94 L - My Orders Last 24 Hours: My Active Orders 12/30/19 13:42 Peripheral IV Care [RC] . DIRECTED Peripheral IV Insertion Adult [OM.PC] Stat - Assessment/Plan Last 24 Hours: My Active Orders 12/30/19 13:42 Peripheral IV Care [RC] . DIRECTED Peripheral IV Insertion Adult [OM.PC] Stat
[2019-12-30 17:12] VITALS: BP 97/70; PULSE 83
== END 2019-12-30 16:54 | disposition home or self-care (01) ==
LOC: JD.ED 13:11
DX: L50.0 Allergic urticaria (principal); F17.210 Nicotine dependence, cigarettes, uncomplicated; M19.90 Unspecified osteoarthritis, unspecified site; I10 Essential (primary) hypertension; Z88.5 Allergy status to narcotic agent; Z79.82 Long term (current) use of aspirin; Z79.899 Other long term (current) drug therapy
CPT/HCPCS: 96361; 96374; 96375; 99283; J1200; J2930; J3490; J7030